=== PATIENT | male | born 1980 | race Caucasian/White ===

== ENCOUNTER → 2017-09-26 | Outpatient (CLI) | payer MEDICAID | LOC: M OUTALCOH 07:54 | PROVIDERS: ATTEND Psychiatry & Neurology Psychiatry | DX: F10.20 Alcohol dependence, uncomplicated (principal) ==

== ENCOUNTER 2017-10-07 13:44 | Outpatient (RCR) | payer MEDICAID | END 2017-10-09 | LOC: M OUTALCOH 13:44 | DX: F10.20 Alcohol dependence, uncomplicated (principal); F17.200 Nicotine dependence, unspecified, uncomplicated ==

== ENCOUNTER 2017-10-11 12:47 | Outpatient (RCR) | payer MEDICAID | END 2017-11-09 | LOC: M OUTALCOH 12:47 | DX: F10.20 Alcohol dependence, uncomplicated (principal); F17.200 Nicotine dependence, unspecified, uncomplicated ==

== ENCOUNTER 2017-11-11 11:08 | Outpatient (RCR) | payer MEDICAID, OTHER | END 2017-12-07 | LOC: M OUTALCOH 11:08 | DX: F10.20 Alcohol dependence, uncomplicated (principal); F17.200 Nicotine dependence, unspecified, uncomplicated ==

== ENCOUNTER 2017-12-08 13:57 | Outpatient (RCR) | payer MEDICAID, OTHER | END 2018-01-07 | LOC: M OUTALCOH 13:57 | DX: F10.20 Alcohol dependence, uncomplicated (principal); F17.200 Nicotine dependence, unspecified, uncomplicated | CPT/HCPCS: 90834 ==

== ENCOUNTER 2018-01-09 14:09 | Outpatient (RCR) | payer MEDICAID | END 2018-02-06 | LOC: M OUTALCOH 14:09 | DX: F10.20 Alcohol dependence, uncomplicated (principal); F17.200 Nicotine dependence, unspecified, uncomplicated | CPT/HCPCS: 90834 ==

== ENCOUNTER 2018-02-07 16:07 | Outpatient (RCR) | payer MEDICAID, OTHER | END 2018-03-09 | LOC: M OUTALCOH 16:07 | DX: F10.20 Alcohol dependence, uncomplicated (principal); F17.200 Nicotine dependence, unspecified, uncomplicated ==

== ENCOUNTER 2018-03-21 11:57 | Outpatient (RCR) | payer MEDICAID, OTHER | END 2018-04-08 | LOC: M OUTALCOH 04-03 08:00 | DX: F10.20 Alcohol dependence, uncomplicated (principal); F17.200 Nicotine dependence, unspecified, uncomplicated | CPT/HCPCS: 90834 ==

== ENCOUNTER 2018-04-17 09:49 | Outpatient (RCR) | payer MEDICAID, OTHER | END 2018-05-09 | LOC: M OUTALCOH 05-01 08:00 | DX: F10.20 Alcohol dependence, uncomplicated (principal); F17.200 Nicotine dependence, unspecified, uncomplicated ==

== ENCOUNTER 2018-06-26 15:33 | Outpatient (RCR) | payer SELFPAY | END 2018-07-09 | LOC: M OUTALCOH 15:33 | DX: F10.20 Alcohol dependence, uncomplicated (principal); F17.200 Nicotine dependence, unspecified, uncomplicated ==

== ENCOUNTER 2018-07-31 10:22 | Outpatient (RCR) | payer MEDICAID | END 2018-08-09 | LOC: M OUTALCOH 10:22 | DX: F10.20 Alcohol dependence, uncomplicated (principal); F17.200 Nicotine dependence, unspecified, uncomplicated ==

== ENCOUNTER 2018-09-04 07:51 | Outpatient (RCR) | payer SELFPAY | END 2018-09-08 | LOC: M OUTALCOH 07:51 | DX: F10.20 Alcohol dependence, uncomplicated (principal); F17.200 Nicotine dependence, unspecified, uncomplicated ==

== ENCOUNTER → 2023-02-25 | Outpatient (CLI) | payer MEDICAID | LOC: M OUTALCOH 07:43 | PROVIDERS: ATTEND Psychiatry & Neurology Psychiatry | DX: Z13.39 Encounter for screening examination for other mental health and behavioral disorders (principal) ==